=== PATIENT | female | born 1990 | race Caucasian/White ===

== ENCOUNTER → 2019-02-28 | Outpatient (CLI) | payer BC ==
--- NOTE | 2019-02-28 15:44 | US ---
EXAMINATION TYPE: US transvaginal DATE OF EXAM: 02/28/2019 COMPARISON: NONE CLINICAL HISTORY: N97.9 Female infertility. infertility for 4 years, not on any hormones, G0, 2 cycle s this past month TECHNIQUE: TV. Transvaginal sonographic images Date of LMP: 02/03/2019 EXAM MEASUREMENTS: Uterus: 6.9 x 4.0 x 3.0 cm Endometrial Stripe: 1.0 cm Right Ovary: 4.6 x 6.2 x 2.8 cm Left Ovary: 3.0 x 3.1 x 2.5 cm 1. Uterus: Anteverted wnl 2. Endometrium: wnl 3. Right Ovary: 3.2 cyst with hemorrhagic appearance 4. Left Ovary: 1.2cm dominate follicle versus small cyst 5. Bilateral Adnexa: wnl 6. Posterior cul-de-sac: wnl Heterogeneous uterus. Endometrial stripe within normal limits for secretory phase of menstrual cycle. No free fluid in pelvis. Both ovaries seen. There is 3.2 cm hemorrhagic cyst suspected in the right ovary. IMPRESSION: A 3.2 cm hemorrhagic cyst right ovary is noted.
== END | disposition home or self-care (01) ==
LOC: RADUSWWP 14:42
PROVIDERS: ATTEND Family Medicine
DX: N83.201 Unspecified ovarian cyst, right side (principal)
CPT/HCPCS: 76830